=== PATIENT | female | born 1970 | race Caucasian/White ===

== ENCOUNTER 2016-08-16 17:47 | Emergency (ER) | payer MEDICAID, OTHER ==
[~2016-08-16] VITALS: Ht 157.5 cm; Wt 116.6 kg
[~2016-08-16 17:47] MED LIST: HYDR25TA PO; INDO50 PO; LEVO125 PO; MORP60TA6 PO
[2016-08-16] MEDS ORDERED: SULF-168 PO (18:40)
[2016-08-16] MEDS ORDERED: GABA-318 PO (18:40)
[2016-08-16] MEDS ORDERED: BACL20TA PO (18:40)
[2016-08-16] MEDS ORDERED: METO-323 PO (18:40)
[2016-08-16] MEDS ORDERED: ONDA4TAB4 PO (18:40)
[2016-08-16] MEDS ORDERED: BUPR-47 PO (18:40)
[2016-08-16] MEDS ORDERED: OXCA300T PO (18:40)
[2016-08-16] MEDS ORDERED: CLIN-78 PO (18:40)
[2016-08-16] MEDS ORDERED: ADV250 IH (18:40)
[2016-08-16] MEDS ORDERED: LORazepam 2 MG/ML VIAL IM ONE (18:45)
[2016-08-16 21:14] VITALS: BP 131/61
[2016-08-16 21:18] LABS: BASOPHILS % (AUTO) 0.7 % (0.0-2.0); EOSINOPHILS % (AUTO) 2.9 % (1.0-6.0); HEMATOCRIT 37.1 % (36-46); LYMPHOCYTES % (AUTO) 29.4 % (22.0-44.0); MEAN CORPUSCULAR HEMOGLOBIN 28.1 pg (26.0-34.0); MEAN CORPUSCULAR HGB CONC 32.2 G/dL (31.0-37.0); MEAN CORPUSCULAR VOLUME 87 fL (80-100); MONOCYTES # (AUTO) 0.6 K/uL (0.1-1.0); MONOCYTES % (AUTO) 5.6 % (2.0-9.0); NEUTROPHILS # (AUTO) 6.3 K/uL (1.8-7.7); NEUTROPHILS % (AUTO) 61.4 % (40.0-70.0); PLATELET COUNT (AUTO) 291 K/uL (150-450); RED BLOOD CELL COUNT(AUTO) 4.25 MIL/uL (4.00-5.20); RED CELL DISTRIBUTION WIDTH 14.5 % (11.5-14.5); WHITE BLOOD COUNT (AUTO) 10.2 K/uL (4.5-11.0)
[2016-08-16 21:28] LABS: ANION GAP 6 mmol/L (8-16); CALCIUM, TOTAL 8.6 mg/dL (8.8-10.5); CARBON DIOXIDE 34 mmol/L (22-29); CHLORIDE 106 mmol/L (98-107); CREATININE 0.97 mg/dL (0.60-1.30); GLOMERULAR FILTR. RATE CALC > 60 mL/min (>60); POTASSIUM 4.1 mmol/L (3.5-5.1); SODIUM SERUM 146 mmol/L (136-145); UREA NITROGEN, BLOOD 11 mg/dL (7-18)
[2016-08-16 21:33] LABS: ALANINE AMINOTRANSFERASE 26 U/L (12-78); ASPARTATE AMINOTRANSFERASE 18 U/L (15-37); BILIRUBIN,TOTAL 0.3 mg/dL (0.1-1.0); TOTAL PROTEIN, SERUM 6.2 g/dL (6.4-8.2)
[2016-08-16 21:36] LABS: ACETAMINOPHEN < 2 mcg/mL (10-30)
[2016-08-16 21:41] LABS: SALICYLATE 3.5 mg/dL (2.8-20.0)
== END 2016-08-16 22:49 | disposition home or self-care (01) ==
LOC: EMS 17:48
DX: T42.6X2A Poisoning by other antiepileptic and sedative-hypnotic drugs, intentional self-harm, initial encounter (principal); R45.851 Suicidal ideations; I11.9 Hypertensive heart disease without heart failure; I25.2 Old myocardial infarction; E03.9 Hypothyroidism, unspecified; F17.200 Nicotine dependence, unspecified, uncomplicated; Z88.1 Allergy status to other antibiotic agents; Z88.8 Allergy status to other drugs, medicaments and biological substances; Y92.89 Other specified places as the place of occurrence of the external cause
CPT/HCPCS: 36415; 80053; 80307; 85025; 93005; 96372; 99285; G0480; J2060; G0481

== ENCOUNTER 2016-08-17 10:44 | Emergency (ER) | payer OTHER ==
[~2016-08-17] VITALS: Ht 167.6 cm; Wt 159.1 kg
[~2016-08-17 10:44] MED LIST changes: +ADV250 IH; +BACL20TA PO; +BUPR-47 PO; +CLIN-78 PO; +GABA-318 PO; -HYDR25TA PO; +METO-323 PO; -MORP60TA6 PO; +ONDA4TAB4 PO; +OXCA300T PO; +SULF-168 PO
[2016-08-17] MEDS ORDERED: ACETAMINOPHEN 500 MG TABLET PO ONE (11:30)
[2016-08-17] MEDS ORDERED: PERTUSS(ACELL),DIPH,TET VAC/PF 0.5 ML VIAL IM ONE (11:30)
[2016-08-17] MEDS ORDERED: MUPIROCIN CALCIUM 2% 22 GM OINTMENT TP ONE (11:45)
[2016-08-17 13:03] VITALS: BP 152/70
== END 2016-08-17 14:27 | disposition home or self-care (01) ==
LOC: EMS 10:45
DX: S61.250A Open bite of right index finger without damage to nail, initial encounter (principal); I10 Essential (primary) hypertension; E03.9 Hypothyroidism, unspecified; I25.2 Old myocardial infarction; Z88.6 Allergy status to analgesic agent; Z88.8 Allergy status to other drugs, medicaments and biological substances; F17.210 Nicotine dependence, cigarettes, uncomplicated; W64.XXXA Exposure to other animate mechanical forces, initial encounter; Y93.89 Activity, other specified; Y92.89 Other specified places as the place of occurrence of the external cause; Y99.8 Other external cause status
CPT/HCPCS: 90471; 90715; 99283

== ENCOUNTER 2017-01-15 19:38 | Inpatient (IN) | payer MEDICAID, OTHER ==
[~2017-01-15] VITALS: Ht 152.4 cm; Wt 124.5 kg
[~2017-01-15 19:38] MED LIST changes: -ADV250 IH; -BACL20TA PO; -CLIN-78 PO; -GABA-318 PO; +GABA-531 PO; -INDO50 PO; -LEVO125 PO; -METO-323 PO; +OLAN10TA22 PO; -ONDA4TAB4 PO; -OXCA300T PO; -SULF-168 PO
[2017-01-15] MEDS ORDERED: OLAN2.5T3 PO (19:47)
[2017-01-15] MEDS ORDERED: HYDR25TA PO (19:47)
[2017-01-15 20:20] LABS: BASOPHILS % (AUTO) 0.3 % (0.0-2.0); EOSINOPHILS % (AUTO) 6.8 % (1.0-6.0); HEMATOCRIT 36.3 % (36-46); HEMOGLOBIN 12.2 g/dL (12.0-16.0); LYMPHOCYTES # (AUTO) 2.5 K/uL (1.0-4.8); LYMPHOCYTES % (AUTO) 28.1 % (22.0-44.0); MEAN CORPUSCULAR HGB CONC 33.7 G/dL (31.0-37.0); MEAN CORPUSCULAR VOLUME 83 fL (80-100); MONOCYTES # (AUTO) 0.7 K/uL (0.1-1.0); MONOCYTES % (AUTO) 7.5 % (2.0-9.0); NEUTROPHILS % (AUTO) 57.3 % (40.0-70.0); PLATELET COUNT (AUTO) 403 K/uL (150-450); RED BLOOD CELL COUNT(AUTO) 4.37 MIL/uL (4.00-5.20); RED CELL DISTRIBUTION WIDTH 16.7 % (11.5-14.5); WHITE BLOOD COUNT (AUTO) 8.7 K/uL (4.5-11.0)
[2017-01-15] MEDS ORDERED: ZINC OXIDE 20% 30 GM OINTMENT TP ONE (20:30)
[2017-01-15] MEDS ORDERED: TERBINAFINE HCL 1% 30 GM CREAM TP ONE (20:30)
[2017-01-15 20:48] LABS: ANION GAP 5 mmol/L (8-16); CALCIUM, TOTAL 8.9 mg/dL (8.8-10.5); CARBON DIOXIDE 33 mmol/L (22-29); CHLORIDE 104 mmol/L (98-107); CREATININE 0.96 mg/dL (0.60-1.30); GLOMERULAR FILTR. RATE CALC > 60 mL/min (>60); POTASSIUM 3.7 mmol/L (3.5-5.1); SODIUM SERUM 142 mmol/L (136-145); UREA NITROGEN, BLOOD 13 mg/dL (7-18)
[2017-01-15 20:55] LABS: ALANINE AMINOTRANSFERASE 35 U/L (12-78); ALBUMIN 3.2 g/dL (3.4-5.0); ASPARTATE AMINOTRANSFERASE 26 U/L (15-37); BILIRUBIN,TOTAL 0.2 mg/dL (0.1-1.0); TOTAL PROTEIN, SERUM 7.2 g/dL (6.4-8.2)
[2017-01-15 21:07] LABS: ACETAMINOPHEN < 2 mcg/mL (10-30)
[2017-01-16 01:45] VITALS: BP 109/67
[2017-01-16] MEDS ORDERED: OLANZapine 5 MG RAPDIS TABLET PO PRN (01:45)
[2017-01-16] MEDS ORDERED: ZOLPIDEM TARTRATE 10 MG TABLET PO PRN (01:45)
[2017-01-16 02:30] LABS: CHOL/HDL RATIO 3.5 (3.9-5.7); THYROID STIMULATING HORMONE 2.99 uIU/mL (0.36-3.74)
[2017-01-16] MEDS ORDERED: PNEUMOCOCCAL VACCINE POLYVALENT 0.5 ML VIAL [PPSV23] IM ONE (05:30)
[2017-01-16] MEDS ORDERED: MAG HYDROX/AL HYDROX/SIMETH ES 30 ML SUSPENSION UDCUP PO PRN (11:30)
[2017-01-16] MEDS ORDERED: PROMETHAZINE HCL 25 MG TABLET PO PRN (11:30)
[2017-01-16] MEDS ORDERED: LOPERAMIDE HCL 2 MG CAPSULE PO PRN (11:30)
[2017-01-16] MEDS ORDERED: GuaiFENesin/D-METHORPHAN [SUGAR-FREE] 200-20MG/10 ML SYRUP UDCUP PO PRN (11:30)
[2017-01-16] MEDS ORDERED: MAGNESIUM HYDROXIDE SUSPENSION 30 ML UDCUP PO PRN (11:30)
[2017-01-16] MEDS: GABAPENTIN 300 MG CAPSULE PO SCH ×2 (12:41→17:38)
[2017-01-16 16:56] VITALS: BP 116/71
[2017-01-16] MEDS: THIAMINE HCL 100 MG TABLET PO SCH (17:38)
[2017-01-16] MEDS: OLANZapine 5 MG RAPDIS TABLET PO SCH (20:24)
[2017-01-17] MEDS: LORazepam 2 MG TABLET PO PRN ×2 (03:36→15:33)
[2017-01-17] MEDS: HydrOXYzine PAMOATE 50 MG CAPSULE PO PRN (03:36)
[2017-01-17 08:00] VITALS: BP 144/85
[2017-01-17] MEDS: GABAPENTIN 300 MG CAPSULE PO SCH ×3 (09:03→16:35)
[2017-01-17] MEDS: FOLIC ACID 1 MG TABLET PO SCH (09:04)
[2017-01-17] MEDS: NALTREXONE HCL 50 MG TABLET PO SCH (09:04)
[2017-01-17] MEDS: MULTIVITAMINS WITH MINERALS, THERAPEUTIC TABLET PO SCH (09:04)
[2017-01-17] MEDS: THIAMINE HCL 100 MG TABLET PO SCH ×2 (09:04→16:35)
[2017-01-17] MEDS: BuPROPion HCL XL 150 MG ER TABLET PO SCH (09:05)
[2017-01-17] MEDS: OLANZapine 5 MG RAPDIS TABLET PO PRN (15:33)
[2017-01-17 16:49] VITALS: BP 152/86
[2017-01-17] MEDS: OLANZapine 5 MG RAPDIS TABLET PO SCH (20:19)
[2017-01-18] MEDS: LORazepam 2 MG TABLET PO PRN ×2 (04:31→08:47)
[2017-01-18] MEDS: FOLIC ACID 1 MG TABLET PO SCH (08:26)
[2017-01-18] MEDS: THIAMINE HCL 100 MG TABLET PO SCH ×2 (08:26→16:03)
[2017-01-18] MEDS: BuPROPion HCL XL 150 MG ER TABLET PO SCH (08:26)
[2017-01-18] MEDS: MULTIVITAMINS WITH MINERALS, THERAPEUTIC TABLET PO SCH (08:26)
[2017-01-18] MEDS: NALTREXONE HCL 50 MG TABLET PO SCH (08:27)
[2017-01-18] MEDS: GABAPENTIN 300 MG CAPSULE PO SCH ×3 (08:28→16:03)
[2017-01-18] MEDS: OLANZapine 5 MG RAPDIS TABLET PO PRN (08:47)
[2017-01-18 08:58] VITALS: BP 141/89
[2017-01-18] MEDS ORDERED: ALBU8HFA IH (09:38)
[2017-01-18] MEDS ORDERED: FLUT1BLS IH (09:38)
[2017-01-18] MEDS ORDERED: INDO50 PO (09:38)
[2017-01-18] MEDS: INDOMETHACIN 50 MG CAPSULE PO SCH ×3 (10:49→16:02)
[2017-01-18] MEDS: NICOTINE 21 MG/24 HOUR PATCH TD SCH (10:49)
[2017-01-18] MEDS: FLUTICASONE/VILANTEROL 200-25 MCG/INH INHALER [14] IH SCH (10:50)
[2017-01-18] MEDS ORDERED: LORazepam 2 MG/ML VIAL IM ONE (18:45)
[2017-01-18] MEDS ORDERED: FluPHENAZine HCL 2.5 MG/ML INJ IM ONE (18:45)
[2017-01-18] MEDS: OLANZapine 5 MG RAPDIS TABLET PO SCH (20:07)
[2017-01-18] MEDS: OLANZapine 10 MG RAPDIS TABLET PO SCH (21:00)
[2017-01-18 21:05] VITALS: BP 135/82
[2017-01-19 08:00] VITALS: BP 154/104
[2017-01-19] MEDS: BuPROPion HCL XL 150 MG ER TABLET PO SCH (09:02)
[2017-01-19] MEDS: INDOMETHACIN 50 MG CAPSULE PO SCH ×3 (09:02→16:11)
[2017-01-19] MEDS: MULTIVITAMINS WITH MINERALS, THERAPEUTIC TABLET PO SCH (09:02)
[2017-01-19] MEDS: NALTREXONE HCL 50 MG TABLET PO SCH (09:02)
[2017-01-19] MEDS: FLUTICASONE/VILANTEROL 200-25 MCG/INH INHALER [14] IH SCH (09:02)
[2017-01-19] MEDS: OLANZapine 5 MG RAPDIS TABLET PO PRN (09:03)
[2017-01-19] MEDS: ACETAMINOPHEN 325 MG TABLET PO PRN (09:03)
[2017-01-19] MEDS: GABAPENTIN 300 MG CAPSULE PO SCH ×3 (09:03→16:11)
[2017-01-19] MEDS: FOLIC ACID 1 MG TABLET PO SCH (09:03)
[2017-01-19] MEDS: HydrOXYzine PAMOATE 50 MG CAPSULE PO PRN ×2 (09:03→17:54)
[2017-01-19] MEDS: LORazepam 2 MG TABLET PO PRN ×2 (09:03→16:10)
[2017-01-19] MEDS: THIAMINE HCL 100 MG TABLET PO SCH ×2 (09:04→16:11)
[2017-01-19] MEDS: NICOTINE 21 MG/24 HOUR PATCH TD SCH (09:05)
[2017-01-19] MEDS: ALBUTEROL SULFATE HFA 90 MCG/PUFF 8 GM INHALER IH PRN (09:06)
[2017-01-19 16:30] VITALS: BP 150/84
[2017-01-19] MEDS: OLANZapine 10 MG RAPDIS TABLET PO SCH (21:05)
[2017-01-20] MEDS: LORazepam 2 MG TABLET PO PRN ×2 (02:54→11:10)
[2017-01-20 08:00] VITALS: BP 140/85
[2017-01-20] MEDS: FLUTICASONE/VILANTEROL 200-25 MCG/INH INHALER [14] IH SCH (09:01)
[2017-01-20] MEDS: INDOMETHACIN 50 MG CAPSULE PO SCH ×3 (09:01→16:27)
[2017-01-20] MEDS: NICOTINE 21 MG/24 HOUR PATCH TD SCH (09:01)
[2017-01-20] MEDS: ALBUTEROL SULFATE HFA 90 MCG/PUFF 8 GM INHALER IH PRN (09:01)
[2017-01-20] MEDS: NALTREXONE HCL 50 MG TABLET PO SCH (09:02)
[2017-01-20] MEDS: BuPROPion HCL XL 150 MG ER TABLET PO SCH (09:02)
[2017-01-20] MEDS: FOLIC ACID 1 MG TABLET PO SCH (09:03)
[2017-01-20] MEDS: MULTIVITAMINS WITH MINERALS, THERAPEUTIC TABLET PO SCH (09:03)
[2017-01-20] MEDS: GABAPENTIN 300 MG CAPSULE PO SCH ×2 (09:03→12:46)
[2017-01-20] MEDS: THIAMINE HCL 100 MG TABLET PO SCH ×2 (09:04→16:27)
[2017-01-20] MEDS: OLANZapine 5 MG RAPDIS TABLET PO PRN (11:10)
[2017-01-20] MEDS ORDERED: FluPHENAZine HCL 2.5 MG/ML INJ IM ONE (14:45)
[2017-01-20] MEDS ORDERED: LORazepam 2 MG/ML VIAL IM ONE (14:45)
[2017-01-20 15:22] VITALS: BP 128/80
[2017-01-20] MEDS ORDERED: BACLOFEN 10 MG TABLET PO PRN (15:45)
[2017-01-20] MEDS: OLANZapine 10 MG RAPDIS TABLET PO SCH (21:06)
[2017-01-20] MEDS: GABAPENTIN 100 MG CAPSULE PO SCH (21:07)
[2017-01-21] MEDS: ACETAMINOPHEN 325 MG TABLET PO PRN (06:41)
[2017-01-21 06:44] VITALS: BP 124/71
[2017-01-21 08:16] VITALS: BP 122/72
[2017-01-21] MEDS: FOLIC ACID 1 MG TABLET PO SCH (08:31)
[2017-01-21] MEDS: INDOMETHACIN 50 MG CAPSULE PO SCH ×3 (08:32→16:29)
[2017-01-21] MEDS: NALTREXONE HCL 50 MG TABLET PO SCH (08:32)
[2017-01-21] MEDS: MULTIVITAMINS WITH MINERALS, THERAPEUTIC TABLET PO SCH (08:32)
[2017-01-21] MEDS: BuPROPion HCL XL 150 MG ER TABLET PO SCH (08:32)
[2017-01-21] MEDS: GABAPENTIN 100 MG CAPSULE PO SCH ×2 (08:32→20:44)
[2017-01-21] MEDS: THIAMINE HCL 100 MG TABLET PO SCH ×2 (08:34→16:29)
[2017-01-21] MEDS: FLUTICASONE/VILANTEROL 200-25 MCG/INH INHALER [14] IH SCH (08:38)
[2017-01-21] MEDS: NICOTINE 21 MG/24 HOUR PATCH TD SCH (08:38)
[2017-01-21] MEDS: ALBUTEROL SULFATE HFA 90 MCG/PUFF 8 GM INHALER IH PRN (08:42)
[2017-01-21] MEDS: LORazepam 2 MG TABLET PO PRN ×2 (09:50→16:29)
[2017-01-21] MEDS: OLANZapine 5 MG RAPDIS TABLET PO PRN (09:53)
[2017-01-21 16:35] VITALS: BP 136/87
[2017-01-21] MEDS: OLANZapine 10 MG RAPDIS TABLET PO SCH (20:43)
[2017-01-22] MEDS: GABAPENTIN 100 MG CAPSULE PO SCH (08:09)
[2017-01-22] MEDS: NALTREXONE HCL 50 MG TABLET PO SCH (08:09)
[2017-01-22] MEDS: THIAMINE HCL 100 MG TABLET PO SCH (08:09)
[2017-01-22] MEDS: MULTIVITAMINS WITH MINERALS, THERAPEUTIC TABLET PO SCH (08:09)
[2017-01-22] MEDS: FOLIC ACID 1 MG TABLET PO SCH (08:09)
[2017-01-22] MEDS: FLUTICASONE/VILANTEROL 200-25 MCG/INH INHALER [14] IH SCH (08:10)
[2017-01-22] MEDS: INDOMETHACIN 50 MG CAPSULE PO SCH ×2 (08:11→12:09)
[2017-01-22] MEDS: NICOTINE 21 MG/24 HOUR PATCH TD SCH (08:11)
[2017-01-22] MEDS ORDERED: BuPROPion HCL XL 150 MG ER TABLET PO SCH (09:00)
[2017-01-22 09:09] VITALS: BP 166/83
[2017-01-22] MEDS ORDERED: NALT50TA PO (13:01)
[2017-01-22] MEDS ORDERED: BUPR-47 PO (13:01)
[2017-01-22] MEDS ORDERED: OLAN10TA22 PO (13:01)
[2017-01-22] MEDS ORDERED: GABA-529 PO (13:01)
== END 2017-01-22 14:30 | disposition home or self-care (01) | DRG 750 ==
LOC: EMS 19:40 → 3EC 01-16 01:31
PROVIDERS: ADMIT Psychiatry & Neurology Psychiatry; ATTEND Psychiatry & Neurology Psychiatry
DX: F25.0 Schizoaffective disorder, bipolar type (principal); G62.9 Polyneuropathy, unspecified; I10 Essential (primary) hypertension; E03.9 Hypothyroidism, unspecified; F17.200 Nicotine dependence, unspecified, uncomplicated; G89.4 Chronic pain syndrome; I25.10 Atherosclerotic heart disease of native coronary artery without angina pectoris; J44.9 Chronic obstructive pulmonary disease, unspecified; M19.90 Unspecified osteoarthritis, unspecified site; R45.850 Homicidal ideations; Z91.14 Patient's other noncompliance with medication regimen; Q05.9 Spina bifida, unspecified; I25.2 Old myocardial infarction; Z88.1 Allergy status to other antibiotic agents; Z88.8 Allergy status to other drugs, medicaments and biological substances
CPT/HCPCS: 84443; 87081; 93005; 99285; G0480; G0481; J2060; J3490; J3535